=== PATIENT | male | born 1935 | race Asian ===

== ENCOUNTER 2020-03-21 06:40 | Inpatient (IN) | payer MEDICARE, OTHER ==
[~2020-03-21] VITALS: Ht 175.3 cm; Wt 87.5 kg
[2020-03-21 08:03] LABS: CREATININE 5.79 mg/dL (0.60-1.30); POTASSIUM 4.7 mmol/L (3.5-5.1)
[2020-03-21] MEDS ORDERED: DOXE10 PO (08:04)
[2020-03-21] MEDS ORDERED: SENN8.8S6 PO (08:04)
[2020-03-21] MEDS ORDERED: FURO40 PO (08:04)
[2020-03-21] MEDS ORDERED: CARV6 PO (08:04)
[2020-03-21] MEDS ORDERED: TAMS-13 PO (08:04)
[2020-03-21] MEDS ORDERED: LEVO25TA9 PO (08:04)
[2020-03-21] MEDS ORDERED: CETI1SOL83 PO (08:04)
[2020-03-21] MEDS ORDERED: PHOSLOC PO (08:04)
[2020-03-21] MEDS ORDERED: ASPI-728 PO (08:04)
[2020-03-21] MEDS ORDERED: ATOR40TA28 PO (08:04)
[2020-03-21 08:06] LABS: BASOPHILS % (AUTO) 0.5 % (0.0-2.0); EOSINOPHILS % (AUTO) 3.6 % (1.0-6.0); HEMATOCRIT 27.2 % (41-53); HEMOGLOBIN 8.8 g/dL (13.5-17.5); LYMPHOCYTES # (AUTO) 1.6 K/uL (1.0-4.8); LYMPHOCYTES % (AUTO) 17.1 % (22.0-44.0); MEAN CORPUSCULAR HEMOGLOBIN 30.8 pg (26.0-34.0); MEAN CORPUSCULAR HGB CONC 32.5 G/dL (31.0-37.0); MEAN CORPUSCULAR VOLUME 95 fL (80-100); MONOCYTES # (AUTO) 0.6 K/uL (0.1-1.0); MONOCYTES % (AUTO) 6.7 % (2.0-9.0); NEUTROPHILS # (AUTO) 6.6 K/uL (1.8-7.7); NEUTROPHILS % (AUTO) 72.1 % (40.0-70.0); PLATELET COUNT (AUTO) 245 K/uL (150-450); RED BLOOD CELL COUNT(AUTO) 2.87 MIL/uL (4.50-5.90); RED CELL DISTRIBUTION WIDTH 19.6 % (11.5-14.5)
[2020-03-21 08:07] LABS: PROTHROMBIN TIME 10.7 SEC (9.4-11.6)
[2020-03-21 08:13] LABS: ALBUMIN 2.9 g/dL (3.4-5.0); BILIRUBIN,TOTAL 0.3 mg/dL (0.1-1.0)
[2020-03-21] MEDS ORDERED: 0.9% SODIUM CHLORIDE 10 ML SYRINGE IVP PRN (10:00)
[2020-03-21] MEDS ORDERED: ONDANSETRON HCL 4 MG/2 ML VIAL IVP PRN (10:00)
[2020-03-21] MEDS ORDERED: ACETAMINOPHEN 325 MG TABLET PO PRN (10:00)
[2020-03-21 10:40] LABS: COVID AG,FIA SOURCE NASOPHARYNGEAL
[2020-03-21] MEDS: APIXABAN 2.5 MG TABLET PO SCH ×2 (10:42→20:22)
[2020-03-21 12:28] VITALS: BP 120/67
[2020-03-21 14:44] VITALS: BP 124/72
[2020-03-21 20:00] VITALS: BP 140/90
[2020-03-21] MEDS: CARVEDILOL 6.25 MG TABLET PO SCH (20:22)
[2020-03-21] MEDS: DOCUSATE SODIUM 100 MG CAPSULE PO SCH (20:22)
[2020-03-21 23:44] VITALS: BP 138/58
[2020-03-22 05:03] VITALS: BP 106/71
[2020-03-22 06:14] LABS: BASOPHILS % (AUTO) 0.5 % (0.0-2.0); HEMOGLOBIN 9.3 g/dL (13.5-17.5); LYMPHOCYTES # (AUTO) 1.8 K/uL (1.0-4.8); LYMPHOCYTES % (AUTO) 19.8 % (22.0-44.0); MEAN CORPUSCULAR HEMOGLOBIN 31.6 pg (26.0-34.0); MEAN CORPUSCULAR HGB CONC 33.1 G/dL (31.0-37.0); MEAN CORPUSCULAR VOLUME 96 fL (80-100); MONOCYTES # (AUTO) 0.8 K/uL (0.1-1.0); MONOCYTES % (AUTO) 8.2 % (2.0-9.0); NEUTROPHILS # (AUTO) 6.3 K/uL (1.8-7.7); NEUTROPHILS % (AUTO) 67.5 % (40.0-70.0); PLATELET COUNT (AUTO) 256 K/uL (150-450); RED BLOOD CELL COUNT(AUTO) 2.93 MIL/uL (4.50-5.90)
[2020-03-22 08:10] LABS: ALBUMIN 2.8 g/dL (3.4-5.0); BILIRUBIN,TOTAL 0.4 mg/dL (0.1-1.0); CALCIUM, TOTAL 9.3 mg/dL (8.8-10.5); CREATININE 5.6 mg/dL (0.60-1.30); POTASSIUM 4.2 mmol/L (3.5-5.1); TOTAL PROTEIN, SERUM 6.9 g/dL (6.4-8.2)
[2020-03-22] MEDS: APIXABAN 2.5 MG TABLET PO SCH ×2 (08:23→21:34)
[2020-03-22] MEDS: CARVEDILOL 6.25 MG TABLET PO SCH ×2 (08:23→21:35)
[2020-03-22] MEDS: DOCUSATE SODIUM 100 MG CAPSULE PO SCH ×2 (08:23→21:35)
[2020-03-22] MEDS: FAMOTIDINE 20 MG TABLET PO SCH (08:23)
[2020-03-22 08:54] VITALS: BP 104/53
[2020-03-22 11:18] VITALS: BP 117/58
[2020-03-22] MEDS ORDERED: SENN-277 PO (11:59)
[2020-03-22] MEDS ORDERED: CETI-450 PO (11:59)
[2020-03-22] MEDS: VITAMIN B COMP/VIT C/FOLIC ACID CAPSULE PO SCH (12:50)
[2020-03-22] MEDS: SEVELAMER CARBONATE 800 MG TABLET PO SCH ×2 (12:50→17:37)
[2020-03-22] MEDS: EPOETIN ALFA 10,000 UNITS/ML VIAL SQ SCH (12:51)
[2020-03-22 16:12] VITALS: BP 106/44
[2020-03-22 20:04] VITALS: BP 138/54
[2020-03-23] VITALS (7 sets, daily range): BP systolic 105–117; BP diastolic 48–81
[2020-03-23 07:01] LABS: CALCIUM, TOTAL 7.8 mg/dL (8.8-10.5); CREATININE 5.5 mg/dL (0.60-1.30); MAGNESIUM 2.4 mg/dL (1.80-2.40); PHOSPHORUS 3.6 mg/dL (2.5-4.9); POTASSIUM 3.9 mmol/L (3.5-5.1)
[2020-03-23] MEDS: FAMOTIDINE 20 MG TABLET PO SCH (08:17)
[2020-03-23] MEDS: SEVELAMER CARBONATE 800 MG TABLET PO SCH ×3 (08:17→17:35)
[2020-03-23] MEDS: DOCUSATE SODIUM 100 MG CAPSULE PO SCH ×2 (08:17→20:58)
[2020-03-23] MEDS: VITAMIN B COMP/VIT C/FOLIC ACID CAPSULE PO SCH (08:17)
[2020-03-23] MEDS: APIXABAN 2.5 MG TABLET PO SCH ×2 (08:17→20:58)
[2020-03-23] MEDS: CARVEDILOL 6.25 MG TABLET PO SCH ×2 (09:00→20:58)
[2020-03-23] MEDS: CALCITRIOL 1 MCG/ML AMP IVP SCH (10:31)
[2020-03-24 04:04] VITALS: BP 117/77
[2020-03-24 07:40] VITALS: BP 115/51
[2020-03-24] MEDS: VITAMIN B COMP/VIT C/FOLIC ACID CAPSULE PO SCH (09:18)
[2020-03-24] MEDS: CARVEDILOL 6.25 MG TABLET PO SCH ×2 (09:18→20:13)
[2020-03-24] MEDS: SEVELAMER CARBONATE 800 MG TABLET PO SCH ×3 (09:18→18:43)
[2020-03-24] MEDS: FAMOTIDINE 20 MG TABLET PO SCH (09:18)
[2020-03-24] MEDS: DOCUSATE SODIUM 100 MG CAPSULE PO SCH ×2 (09:18→20:07)
[2020-03-24] MEDS: FUROSEMIDE 20 MG TABLET PO SCH (09:18)
[2020-03-24] MEDS: APIXABAN 2.5 MG TABLET PO SCH ×2 (09:18→20:08)
[2020-03-24 11:34] VITALS: BP 101/47
[2020-03-24 15:17] VITALS: BP 95/48
[2020-03-24 20:04] VITALS: BP 93/46
[2020-03-25] VITALS (7 sets, daily range): BP systolic 103–128; BP diastolic 49–68
[2020-03-25] MEDS: DOCUSATE SODIUM 100 MG CAPSULE PO SCH ×2 (08:15→20:56)
[2020-03-25] MEDS: FUROSEMIDE 20 MG TABLET PO SCH (08:15)
[2020-03-25] MEDS: SEVELAMER CARBONATE 800 MG TABLET PO SCH ×3 (08:15→17:50)
[2020-03-25] MEDS: APIXABAN 2.5 MG TABLET PO SCH ×2 (08:15→20:56)
[2020-03-25] MEDS: VITAMIN B COMP/VIT C/FOLIC ACID CAPSULE PO SCH (08:16)
[2020-03-25] MEDS: FAMOTIDINE 20 MG TABLET PO SCH (08:16)
[2020-03-25] MEDS: CARVEDILOL 6.25 MG TABLET PO SCH ×2 (08:16→21:00)
[2020-03-25 22:01] LABS: APPEARANCE,URINE CLOUDY (CLEAR); BILIRUBIN,URINE NEGATIVE (NEGATIVE); GLUCOSE, URINE (UA) NEGATIVE (NEGATIVE); KETONES,URINE NEGATIVE (NEGATIVE); LEUKOCYTE ESTERASE ,URINE NEGATIVE (NEGATIVE); NITRATE,URINE NEGATIVE (NEGATIVE); OCCULT BLOOD,URINE LARGE (NEGATIVE); PH,URINE 5.5 (5.0-8.0); PROTEIN,URINE SEE CONFIRM (NEGATIVE); UROBILINOGEN,URINE 0.2 mg/dL (<=1.0)
[2020-03-25 22:54] LABS: SULFOSALICYLIC ACID,URINE 2+ (Negative)
[2020-03-25 22:55] LABS: BACTERIA,URINE Few /HPF (None Seen); SQUAMOUS EPITHELIAL CELL,UR Moderate /LPF (None Seen); YEAST,URINE Few /HPF (None Seen)
[2020-03-26 05:08] VITALS: BP 157/73
[2020-03-26 06:29] LABS: CALCIUM, TOTAL 9.2 mg/dL (8.8-10.5); CREATININE 5.63 mg/dL (0.60-1.30); MAGNESIUM 2.5 mg/dL (1.80-2.40); PHOSPHORUS 3.5 mg/dL (2.5-4.9); POTASSIUM 4.5 mmol/L (3.5-5.1)
[2020-03-26] MEDS: CARVEDILOL 6.25 MG TABLET PO SCH ×2 (08:15→20:55)
[2020-03-26 08:28] VITALS: BP 99/69
[2020-03-26] MEDS: CALCITRIOL 1 MCG/ML AMP IVP SCH (09:02)
[2020-03-26] MEDS: VITAMIN B COMP/VIT C/FOLIC ACID CAPSULE PO SCH (09:02)
[2020-03-26] MEDS: SEVELAMER CARBONATE 800 MG TABLET PO SCH ×3 (09:02→18:23)
[2020-03-26] MEDS: APIXABAN 2.5 MG TABLET PO SCH ×2 (09:03→20:55)
[2020-03-26] MEDS: DOCUSATE SODIUM 100 MG CAPSULE PO SCH ×2 (09:03→20:56)
[2020-03-26] MEDS: FAMOTIDINE 20 MG TABLET PO SCH (09:03)
[2020-03-26] MEDS: FUROSEMIDE 20 MG TABLET PO SCH (09:10)
[2020-03-26 11:40] VITALS: BP 128/52
[2020-03-26 15:53] VITALS: BP 109/59
[2020-03-26 20:26] VITALS: BP 137/90
[2020-03-26] MEDS: ACETAMINOPHEN 325 MG TABLET PO PRN (23:52)
[2020-03-27 00:30] VITALS: BP 105/54
[2020-03-27 01:49] LABS: COVID AG,FIA SOURCE NASOPHARYNGEAL
[2020-03-27 04:21] VITALS: BP 156/55
[2020-03-27] MEDS: ACETAMINOPHEN 325 MG TABLET PO PRN ×2 (04:45→21:04)
[2020-03-27 07:31] LABS: CALCIUM, TOTAL 8.7 mg/dL (8.8-10.5); CREATININE 7.41 mg/dL (0.60-1.30); MAGNESIUM 2.4 mg/dL (1.80-2.40); PHOSPHORUS 3.7 mg/dL (2.5-4.9); POTASSIUM 4.4 mmol/L (3.5-5.1)
[2020-03-27] MEDS: VITAMIN B COMP/VIT C/FOLIC ACID CAPSULE PO SCH (08:31)
[2020-03-27] MEDS: APIXABAN 2.5 MG TABLET PO SCH ×2 (08:31→23:19)
[2020-03-27] MEDS: DOCUSATE SODIUM 100 MG CAPSULE PO SCH ×2 (08:31→21:04)
[2020-03-27] MEDS: SEVELAMER CARBONATE 800 MG TABLET PO SCH ×3 (08:31→18:02)
[2020-03-27] MEDS: FAMOTIDINE 20 MG TABLET PO SCH (08:31)
[2020-03-27] MEDS: FUROSEMIDE 20 MG TABLET PO SCH (08:32)
[2020-03-27] MEDS: CARVEDILOL 6.25 MG TABLET PO SCH ×2 (08:35→21:04)
[2020-03-27] MEDS ORDERED: SODIUM CHLORIDE 0.9% 250 ML IV ONE ×2 (08:44→08:46)
[2020-03-27 09:00] VITALS: BP 93/34
[2020-03-27 11:41] LABS: HEMATOCRIT 28.3 % (41-53); MEAN CORPUSCULAR HEMOGLOBIN 30.4 pg (26.0-34.0); MEAN CORPUSCULAR VOLUME 95 fL (80-100); PLATELET COUNT (AUTO) 232 K/uL (150-450); RED BLOOD CELL COUNT(AUTO) 2.97 MIL/uL (4.50-5.90); RED CELL DISTRIBUTION WIDTH 19.8 % (11.5-14.5)
[2020-03-27 11:54] VITALS: BP 88/61
[2020-03-27 12:22] LABS: BAND NEUTROPHILS % (MANUAL) 23 % (0-5); LYMPHOCYTES % (MANUAL) 5 % (22-44); MONOCYTES % (MANUAL) 5 % (2-9); SEGMENTED NEUTROPHILS % 67 % (40-70)
[2020-03-27] MEDS ORDERED: DAPTOMYCIN 500 MG in SODIUM CHLORIDE 0.9% 50 ML IV SCH (16:00)
[2020-03-27 16:20] VITALS: BP 101/44
[2020-03-27] MEDS ORDERED: *CLINICAL-LEVOFLOXACIN IVPB DOSING CLINICAL ONE (19:45)
[2020-03-27 20:45] VITALS: BP 134/56
[2020-03-27] MEDS ORDERED: LEVOFLOXACIN 750 MG/D5% WATER 150 ML IV ONE (21:00)
[2020-03-27 23:51] LABS: APPEARANCE,URINE CLOUDY (CLEAR); GLUCOSE, URINE (UA) NEGATIVE (NEGATIVE); KETONES,URINE TRACE mg/dL (NEGATIVE); LEUKOCYTE ESTERASE ,URINE SMALL (NEGATIVE); NITRATE,URINE NEGATIVE (NEGATIVE); OCCULT BLOOD,URINE LARGE (NEGATIVE); PH,URINE 5.5 (5.0-8.0); PROTEIN,URINE SEE CONFIRM (NEGATIVE); UROBILINOGEN,URINE 0.2 mg/dL (<=1.0)
[2020-03-27 23:52] LABS: BILIRUBIN,URINE PRELIM. POSITIVE (NEGATIVE)
[2020-03-27 23:59] LABS: SULFOSALICYLIC ACID,URINE 4+ (Negative)
[2020-03-28] VITALS (10 sets, daily range): BP systolic 65–126; BP diastolic 26–78
[2020-03-28 00:01] LABS: BACTERIA,URINE Many /HPF (None Seen); RBC,URINE Full Field /HPF (0-2); WBC,URINE 51-100 /HPF (0-5)
[2020-03-28 00:02] LABS: SQUAMOUS EPITHELIAL CELL,UR Moderate /LPF (None Seen)
[2020-03-28] MEDS ORDERED: ONDANSETRON HCL 4 MG/2 ML VIAL ONE (05:13)
[2020-03-28] MEDS ORDERED: ONDANSETRON HCL 4 MG/2 ML VIAL IVP PRN (05:30)
[2020-03-28 06:41] LABS: BASOPHILS % (AUTO) 0.2 % (0.0-2.0); EOSINOPHILS % (AUTO) 0.1 % (1.0-6.0); HEMATOCRIT 25.8 % (41-53); HEMOGLOBIN 8.6 g/dL (13.5-17.5); LYMPHOCYTES # (AUTO) 0.9 K/uL (1.0-4.8); LYMPHOCYTES % (AUTO) 4.6 % (22.0-44.0); MEAN CORPUSCULAR HEMOGLOBIN 31.6 pg (26.0-34.0); MEAN CORPUSCULAR HGB CONC 33.3 G/dL (31.0-37.0); MEAN CORPUSCULAR VOLUME 95 fL (80-100); MONOCYTES # (AUTO) 1.8 K/uL (0.1-1.0); MONOCYTES % (AUTO) 9.6 % (2.0-9.0); NEUTROPHILS # (AUTO) 16.3 K/uL (1.8-7.7); PLATELET COUNT (AUTO) 191 K/uL (150-450); RED BLOOD CELL COUNT(AUTO) 2.72 MIL/uL (4.50-5.90); RED CELL DISTRIBUTION WIDTH 19.8 % (11.5-14.5)
[2020-03-28 07:00] LABS: ALBUMIN 2.5 g/dL (3.4-5.0); BILIRUBIN,TOTAL 0.6 mg/dL (0.1-1.0); CALCIUM, TOTAL 8.7 mg/dL (8.8-10.5); CREATININE 9.3 mg/dL (0.60-1.30); MAGNESIUM 2.3 mg/dL (1.80-2.40); PHOSPHORUS 3.6 mg/dL (2.5-4.9); POTASSIUM 4.6 mmol/L (3.5-5.1); TOTAL PROTEIN, SERUM 6.2 g/dL (6.4-8.2)
[2020-03-28 07:29] LABS: NEUTROPHILS % (AUTO) 85.5 % (40.0-70.0)
[2020-03-28 07:53] LABS: INFLUENZA TYPE A NEGATIVE FOR TYPE A (NEGATIVE); INFLUENZA TYPE B NEGATIVE FOR TYPE B (NEGATIVE)
[2020-03-28] MEDS: SEVELAMER CARBONATE 800 MG TABLET PO SCH ×4 (08:00→17:50)
[2020-03-28] MEDS ORDERED: IOVERSOL 350 MG/ML 150 ML VIAL ONE (08:29)
[2020-03-28] MEDS ORDERED: SODIUM CHLORIDE 0.9% 100 ML ONE (08:29)
[2020-03-28 08:42] LABS: BASOPHILS % (AUTO) 0.4 % (0.0-2.0); EOSINOPHILS % (AUTO) 0.1 % (1.0-6.0); HEMATOCRIT 26.9 % (41-53); HEMOGLOBIN 8.9 g/dL (13.5-17.5); LYMPHOCYTES # (AUTO) 0.9 K/uL (1.0-4.8); LYMPHOCYTES % (AUTO) 4.3 % (22.0-44.0); MEAN CORPUSCULAR HEMOGLOBIN 31.6 pg (26.0-34.0); MEAN CORPUSCULAR HGB CONC 33.3 G/dL (31.0-37.0); MEAN CORPUSCULAR VOLUME 95 fL (80-100); MONOCYTES # (AUTO) 1.8 K/uL (0.1-1.0); MONOCYTES % (AUTO) 9.1 % (2.0-9.0); NEUTROPHILS # (AUTO) 17.1 K/uL (1.8-7.7); PLATELET COUNT (AUTO) 191 K/uL (150-450); RED BLOOD CELL COUNT(AUTO) 2.84 MIL/uL (4.50-5.90); RED CELL DISTRIBUTION WIDTH 19.7 % (11.5-14.5)
[2020-03-28 08:43] LABS: NEUTROPHILS % (AUTO) 86.1 % (40.0-70.0)
[2020-03-28 08:56] LABS: ANION GAP 12 mmol/L (8-16); CALCIUM, TOTAL 8.7 mg/dL (8.8-10.5); CARBON DIOXIDE 22 mmol/L (22-29); CHLORIDE 103 mmol/L (98-107); CREATININE 9.61 mg/dL (0.60-1.30); GLOMERULAR FILTR. RATE CALC 5 mL/min (>60); GLUCOSE,RANDOM 135 mg/dL (70-110); SODIUM SERUM 137 mmol/L (136-145); UREA NITROGEN, BLOOD 97 mg/dL (7-18)
[2020-03-28 08:57] LABS: INR 1.1 (0.9-1.1); PROTHROMBIN TIME 11.8 SEC (9.4-11.6)
[2020-03-28] MEDS: CARVEDILOL 6.25 MG TABLET PO SCH (09:00)
[2020-03-28 09:01] LABS: ALANINE AMINOTRANSFERASE 9 U/L (12-78); ALBUMIN 2.6 g/dL (3.4-5.0); ALKALINE PHOSPHATASE 61 U/L (46-116); ASPARTATE AMINOTRANSFERASE 17 U/L (15-37); BILIRUBIN,TOTAL 0.5 mg/dL (0.1-1.0); CREATINE KINASE, TOTAL ONLY 71 U/L (39-308); TOTAL PROTEIN, SERUM 6.6 g/dL (6.4-8.2)
[2020-03-28] MEDS: APIXABAN 2.5 MG TABLET PO SCH ×2 (10:29→20:40)
[2020-03-28] MEDS: FAMOTIDINE 20 MG TABLET PO SCH (10:29)
[2020-03-28] MEDS: DOCUSATE SODIUM 100 MG CAPSULE PO SCH ×2 (10:30→20:40)
[2020-03-28] MEDS: CALCITRIOL 1 MCG/ML AMP IVP SCH (10:34)
[2020-03-28] MEDS: VITAMIN B COMP/VIT C/FOLIC ACID CAPSULE PO SCH (11:20)
[2020-03-28 13:20] LABS: ABG A-A DIFF O2 35.7 mmHg (10-20.0); ABG BASE EXCESS -6.4 mmol/L (-2.0-3.0); ABG CARBOXYHEMOGLOBIN 0.5 % (0.0-1.5); ABG HCO3 20.1 mmol/L (22.0-26.0); ABG METHEMOGLOBIN 0.3 % (0.0-1.5); ABG OXYGEN SATURATION 99.5 % (95.0-98.0); ABG OXYHEMOGLOBIN 98.7 % (94.0-100.0); ABG PCO2 24 mmHg (35-45); ABG PH 7.468 (7.35-7.450); ABG TOTAL HEMOGLOBIN 9.1 G/dL (12.0-18.0); PO2, ARTERIAL BG 149.5 mmHg (71.0-79.0); SOURCE, BLOOD GAS ARTERIAL; TEMPERATURE, FAHRENHEIT, BG 98.6 FAHREN (96.0-98.6)
[2020-03-28 13:22] LABS: O2 DEVICE,BLOOD GAS CANNULA (ROOM AIR); SITE, BLOOD GAS RT RADIAL
[2020-03-28 17:28] LABS: GLUCOMETER DEV NAME(LOC) 5N.1; GLUCOSE,POINT OF CARE 124 MG/DL (70-110)
[2020-03-29 04:00] VITALS: BP 62/34
[2020-03-29 06:40] LABS: CREATININE 10.51 mg/dL (0.60-1.30); MAGNESIUM 2.5 mg/dL (1.80-2.40); PHOSPHORUS 4.9 mg/dL (2.5-4.9); POTASSIUM 5.3 mmol/L (3.5-5.1)
[2020-03-29 07:33] VITALS: BP 88/44
[2020-03-29] MEDS: DOCUSATE SODIUM 100 MG CAPSULE PO SCH (08:37)
[2020-03-29] MEDS: FAMOTIDINE 20 MG TABLET PO SCH (08:37)
[2020-03-29] MEDS: APIXABAN 2.5 MG TABLET PO SCH (08:37)
[2020-03-29] MEDS: SEVELAMER CARBONATE 800 MG TABLET PO SCH (08:37)
[2020-03-29] MEDS: VITAMIN B COMP/VIT C/FOLIC ACID CAPSULE PO SCH (08:37)
[2020-03-29] MEDS: EPOETIN ALFA 10,000 UNITS/ML VIAL SQ SCH (08:44)
[2020-03-29] MEDS ORDERED: LEVOFLOXACIN 500 MG/D5% WATER 100 ML IV SCH (21:00)
== END 2020-03-29 12:00 | disposition hospice, home (50) | DRG 291 ==
LOC: EMS 06:42 → 5N 11:46 → 5S 03-22 17:38 → 5N 03-27 13:50 → ICUN 03-28 13:14 → 6N 03-28 16:43
PROVIDERS: ADMIT Internal Medicine; ATTEND Internal Medicine
DX: I13.2 Hypertensive heart and chronic kidney disease with heart failure and with stage 5 chronic kidney disease, or end stage renal disease (principal); A41.9 Sepsis, unspecified organism; N18.6 End stage renal disease; I50.43 Acute on chronic combined systolic (congestive) and diastolic (congestive) heart failure; E43 Unspecified severe protein-calorie malnutrition; G92 Toxic encephalopathy; I48.20 Chronic atrial fibrillation, unspecified; I48.92 Unspecified atrial flutter; N25.81 Secondary hyperparathyroidism of renal origin; I42.9 Cardiomyopathy, unspecified; D63.8 Anemia in other chronic diseases classified elsewhere; F03.90 Unspecified dementia, unspecified severity, without behavioral disturbance, psychotic disturbance, mood disturbance, and anxiety; E03.9 Hypothyroidism, unspecified; D64.9 Anemia, unspecified; I25.5 Ischemic cardiomyopathy; E78.5 Hyperlipidemia, unspecified; I49.5 Sick sinus syndrome; I48.0 Paroxysmal atrial fibrillation; I71.2 Thoracic aortic aneurysm, without rupture; R62.7 Adult failure to thrive; Z20.828 Contact with and (suspected) exposure to other viral communicable diseases
CPT/HCPCS: 36600; 70450; 71250; 72148; 72192; 74150; 76770; 82805; 83735; 84100; 86256; 87040; 87081; 87086; 87205; 87340; 87426; 87804; 93005; 93306; 97162; 97530; J0636; J0878; J0885; J1956; J2405; J7050; 36415-L1; 36415-TC; 71045-TC; U0003